=== PATIENT | female | born 1975 | race Caucasian/White ===

== ENCOUNTER 2019-11-19 16:29 | Emergency (ER) | payer OTHER, BC, SELFPAY ==
[2019-11-19 16:31] VITALS: BP 129/79; PULSE 63; RESP 18; TEMP 36.6; O2SAT 100
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
[2019-11-19] MEDS: KETOROLAC (*BKC) 60 MG/2 ML VIAL IM (16:56)
== END 2019-11-19 18:10 | disposition home or self-care (01) ==
LOC: ANHED 17:43
PROVIDERS: Emergency Provider Emergency Medicine; PCP Family Medicine
DX: S29.012A Strain of muscle and tendon of back wall of thorax, initial encounter (principal); V49.40XA Driver injured in collision with unspecified motor vehicles in traffic accident, initial encounter
CPT/HCPCS: 96372; 99283; J1885

== ENCOUNTER 2023-01-08 15:40 | Emergency (ER) | payer BC, SELFPAY ==
--- NOTE | ~2023-01-08 | XR_ITS ---
EXAMINATION: XR chest 2V DATE: 01/08/2023 16:14 INDICATION: Cough since recent COVID infection TECHNIQUE: PA and lateral views of the chest are obtained. COMPARISON: None available FINDINGS: The lungs are free of acute opacities. No pleural effusion or pneumothorax. The cardiomedia stinal silhouette is normal. There is mild thoracic spondylosis. IMPRESSION: 1. No acute cardiopulmonary abnormality. Reviewed, dictated and finalized at location L.
[2023-01-08 15:48] VITALS: BP 123/70; PULSE 79; RESP 20; TEMP 36.4; O2SAT 100
--- NOTE | 2023-01-08 16:21 | ED.URI ---
HPI - URI/Sore Throat General Chief Complaint: Upper Respiratory Infection Stated Complaint: Cough Time Seen by Provider: 01/08/23 16:22 Source: patient Mode of arrival: ambulatory Limitations: no limitations History of Present Illness HPI Narrative: 47-year-old female presented for complaint of persistent cough for about 3 weeks following COVID. States other covid symptoms have resolved. Cough is worse at night, causes sob with coughing fits. Denies Chest pain, wheezing, nausea, vomiting, fevers or chills. Taking magdalena seltzer for symptoms and using albuterol inhaler up to 6 times a day. States she did a telehealth appointment today and was advised on CXR. Unable to see pcp until May. Related Data Allergies Allergy/AdvReac Type Severity Reaction Status Date / Time No Known Allergies Allergy Verified 11/19/19 16:53 Review of Systems Review of Systems: CONSTITUTIONAL: Denies body aches, fever, chills, or sweats. EYES: Denies visual changes, redness, or discharge. ENT: Denies rhinorrhea, congestion, sore throat, or otalgia. CARDIOVASCULAR: Denies chest pain, palpitations, or edema. RESPIRATORY: Reports cough, denies sob, wheezing. GASTROINTESTINAL: Denies abdominal pain, nausea, vomiting, or diarrhea. GENITOURINARY: Denies dysuria or hematuria. SKIN: Denies rash, itching, or wounds. MUSCULOSKELETAL: Denies back pain, joint pain, or myalgia. NEUROLOGIC: Denies headache, numbness, tingling, or weakness. PSYCH: Denies depression or anxiety. All systems reviewed & are unremarkable except as noted in HPI and below PMFSH Past Medical History Medical History Migraine headache Comments At time of signature, I have reviewed and agree with nursing past medical, surgical, social and family history unless otherwise noted. Please see nursing chart for further information. There is no relevant family history pertinent to the presenting complaint Exam Narrative: GENERAL: Well-appearing, in no acute distress. EYES: EOMI. No redness or drainage. Conjunctivae normal. ENT: Mucous membranes pink and moist. No rhinorrhea. TMs normal bilaterally. Throat normal. Uvula midline. NECK: Normal AROM. Supple. CHEST: No respiratory distress. LCTAB. Speaks full sentences. HEART: Regular rate and rhythm. No murmur appreciated. ABDOMEN: Soft, nontender, nondistended, normal active bowel sounds. EXTREMITIES: Normal range of motion. No edema. SKIN: Warm, dry, no rash. Capillary refill normal. Normal skin turgor. NEURO: Alert and oriented x3. Gait steady. PSYCH: Normal affect. Talkative. Course Course Emergency Course: Patient is aware of diagnosis, understands and agrees to treatment plan. Anticipatory guidance given. Patient agrees to follow-up as directed and is aware of reasons to seek care at the emergency department. Portions of this record may have been created with voice recognition software Level of Care: Express Care Visit Vital Signs Vital signs: Vital Signs Temperature 97.6 F 01/08/23 15:48 Pulse Rate 79 01/08/23 15:48 Respiratory Rate 20 01/08/23 15:48 Blood Pressure 123/70 01/08/23 15:48 Pulse Oximetry 100 01/08/23 15:48 Oxygen Delivery Room Air 01/08/23 15:48 Temperature 97.6 F 01/08/23 15:48 Pulse Rate 79 01/08/23 15:48 Respiratory Rate 20 01/08/23 15:48 Blood Pressure 123/70 01/08/23 15:48 Pulse Oximetry 100 01/08/23 15:48 Oxygen Delivery Room Air 01/08/23 15:48 MDM - URI/Sore Throat MDM Narrative Medical decision making narrative: results of chest x-ray reviewed with patient. Discussed physical exam findings. Advised supportive measures and signs/symptoms to go to the ER. Pt is appropriate for outpt treatment and f/u. Differential Diagnosis Differential diagnosis: Likely upper respiratory infection, viral infection and bronchitis Imaging Data Radiologist's impression: Patient: Levine
== END 2023-01-08 16:39 | disposition home or self-care (01) ==
PROVIDERS: Emergency Provider Nurse Practitioner Family
DX: R05.9 Cough, unspecified (principal); Z86.16 Personal history of COVID-19
CPT/HCPCS: 71046; 99203; G0463

== ENCOUNTER 2024-04-28 14:23 | Emergency (ER) | payer BC, SELFPAY ==
[2024-04-28 14:37] VITALS: BP 137/79; PULSE 97; RESP 16; TEMP 36.5; O2SAT 100
--- NOTE | 2024-04-28 14:37 | ED_ITS ---
HPI - URI/Sore Throat General Chief Complaint: Upper Respiratory Infection Stated Complaint: cough/sob/ear/drainage Time Seen by Provider: 04/28/24 14:38 Source: patient Mode of arrival: ambulatory Limitations: no limitations History of Present Illness HPI Narrative: 49-year-old female with a history of asthma presented for complaint of cough for 3 weeks, nasal congestion and left ear pain for 2 weeks. endorses shortness of breath with exertion and fatigue. Denies wheezing, nausea vomiting diarrhea, fevers or chills. Taking [id number] medications without improvement. Related Data Home Medications ?Medication ?Instructions ?Recorded ?Confirmed ?Last Taken ?Type montelukast 10 mg tablet 10 mg PO DAILY 04/28/24 Unknown History (Singulair) Allergies Allergy/AdvReac Type Severity Reaction Status Date / Time No Known Allergies Allergy Verified 11/19/19 16:53 Review of Systems Review of Systems: CONSTITUTIONAL: Denies body aches, fever, chills, or sweats. EYES: Denies visual changes, redness, or discharge. ENT: reports rhinorrhea, congestion, otalgia. CARDIOVASCULAR: Denies chest pain, palpitations, or edema. RESPIRATORY: Reports cough, sob, denies wheezing. GASTROINTESTINAL: Denies abdominal pain, nausea, vomiting, or diarrhea. SKIN: Denies rash, itching, or wounds. MUSCULOSKELETAL: Denies back pain, joint pain, or myalgia. NEUROLOGIC: Denies headache, numbness, tingling, or weakness. All systems reviewed & are unremarkable except as noted in HPI and below [facility] Past Medical History Medical History (Updated 04/28/24 @ 14:50 by Jane Garrido, STEFF) Asthma Migraine headache Comments At time of signature, I have reviewed and agree with nursing past medical, surgical, social and family history unless otherwise noted. Please see nursing chart for further information. There is no relevant family history pertinent to the presenting complaint Exam Narrative: GENERAL: Well-appearing, in no acute distress. EYES: EOMI. No redness or drainage. Conjunctivae normal. ENT: Mucous membranes pink and moist. No rhinorrhea. TMs normal bilaterally. Throat normal. Uvula midline. CHEST: No respiratory distress. lungs clear to all mullins. HEART: Regular rate and rhythm. No murmur appreciated. ABDOMEN: Soft, nontender, nondistended, normal active bowel sounds. SKIN: Warm, dry, no rash. Capillary refill normal. Normal skin turgor. NEURO: Alert and oriented x3. Gait steady. PSYCH: Normal affect. Course Course Emergency Course: Patient is aware of diagnosis, understands and agrees to treatment plan. Anticipatory guidance given. Patient agrees to follow-up as directed and is aware of reasons to seek care at the emergency department. Portions of this record may have been created with voice recognition software Level of Care: Express Care Visit MDM - URI/Sore Throat MDM Narrative Medical decision making narrative: Discussed physical exam findings. Advised supportive measures and signs/symptoms to go to the ER. Pt is appropriate for outpt treatment and f/u. Differential Diagnosis Differential diagnosis: Likely upper respiratory infection, sinusitis, viral infection, bronchitis and other (pneumonia) Discharge Plan Discharge Clinical Impression: Bronchitis Patient Disposition: Home, Self-Care Condition: Stable Instructions: Antibiotic Form, Pneumonia (ED) Additional Instructions: Acute bronchitis can be contagious because it is usually caused by infection with a virus or bacteria. It is usually for a few days but you can be contagious for up to one week. Avoid crowds until you do not have a fever and symptoms are improved Take medication as directed Recommend Flonase spray and Zyrtec (or Claritin/Stephanie) the prescribed Cough syrup may cause drowsiness and can be habit forming; Take it as directed. avoid driving or take it at night time. Tylenol 1000mg every 8 hours as needed for pain Symptomatic treatment includes: rest, fluids, and increase humidity of the air at home. Follow up with your primary care provider as needed in 1 week Go to the ER for worsening symptoms or concerns Patient Language: Filipino Prescriptions: New benzonatate 200 mg capsule 200 mg PO TID PRN (Reason: cough) Qty: 20 0RF codeine-guaifenesin [Guaifenesin AC] 10-100 mg/5 mL liquid 10 ml PO Q8H PRN (Reason: cough) Qty: 120 0RF amoxicillin-pot clavulanate 875-125 mg tablet 1 tablet PO Q12H 7 Days Qty: 14 0RF methylprednisolone [Medrol (Rachid)] 4 mg tablets,dose pack See Rx Instructions .ROUTE .COMPLEX Qty: 21 0RF Rx Instructions: orally per package directions No Action montelukast [Singulair] 10 mg tablet 10 mg PO DAILY Follow-up/Referrals: PHYSICIAN NOT ON STAFF,NONSTAFF [Primary Care Provider] - Time of Disposition: 14:48
== END 2024-04-28 14:50 | disposition home or self-care (01) ==
PROVIDERS: Emergency Provider Nurse Practitioner Family
DX: J40 Bronchitis, not specified as acute or chronic (principal); J45.909 Unspecified asthma, uncomplicated
CPT/HCPCS: 99213; G0463

== ENCOUNTER 2024-07-07 15:57 | Emergency (ER) | payer BC, SELFPAY ==
[2024-07-07 16:05] VITALS: BP 126/81; PULSE 77; RESP 20; TEMP 37.3; O2SAT 100
--- NOTE | 2024-07-07 16:31 | ED.URI ---
HPI - URI/Sore Throat General Chief Complaint: Upper Respiratory Infection Stated Complaint: cough/chest congestion Time Seen by Provider: 07/07/24 16:43 Source: patient Mode of arrival: ambulatory Limitations: no limitations History of Present Illness HPI Narrative: 49-year-old female with a history of asthma presented for complaint of cough, chest congestion, occasional wheezing, and fatigue. Onset 3 days. However she states she has been treated earlier this via [facility], and also treated in April for the same. She had antibiotics, steroids, and cough medicine since onset with brief improvement. She currently denies shortness of breath, nausea, vomiting, diarrhea, fevers or lethargy. using inhaler. Related Data Home Medications ?Medication ?Instructions ?Recorded ?Confirmed ?Last Taken ?Type montelukast 10 mg tablet 10 mg PO DAILY 04/28/24 Unknown History (Singulair) albuterol sulfate 90 mcg/actuation 2 inh inhalation Q4-6H PRN 07/07/24 Unknown History breath activated powder inhaler shortness of breath or wheezing Allergies Allergy/AdvReac Type Severity Reaction Status Date / Time No Known Allergies Allergy Verified 07/07/24 16:24 Review of Systems Review of Systems: ROS per HPI. All systems reviewed & are unremarkable except as noted in HPI and below PMFSH Past Medical History Medical History (Updated 07/07/24 @ 16:57 by Jane Garrido, STEFF) Asthma Migraine headache Comments At time of signature, I have reviewed and agree with nursing past medical, surgical, social and family history unless otherwise noted. Please see nursing chart for further information. There is no relevant family history pertinent to the presenting complaint Exam Narrative: GENERAL: Well-appearing, in no acute distress. EYES: EOMI. No redness or drainage. Conjunctivae normal. ENT: Mucous membranes pink and moist. No rhinorrhea. NECK: Normal AROM. Supple. CHEST: No respiratory distress. Lungs clear to all mullins. HEART: Regular rate and rhythm. No murmur appreciated. ABDOMEN: Soft, nontender, nondistended, normal active bowel sounds. SKIN: Warm, dry, no rash. Capillary refill normal. Normal skin turgor. NEURO: Alert and oriented x3. Gait steady. PSYCH: Normal affect. Course Course Emergency Course: Patient is aware of diagnosis, understands and agrees to treatment plan. Anticipatory guidance given. Patient agrees to follow-up as directed and is aware of reasons to seek care at the emergency department. Portions of this record may have been created with voice recognition software Level of Care: Express Care Visit Vital Signs Vital signs: Vital Signs Temperature 99.2 F 07/07/24 16:05 Pulse Rate 77 07/07/24 16:05 Respiratory Rate 20 07/07/24 16:05 Blood Pressure 126/81 07/07/24 16:05 Pulse Oximetry 100 07/07/24 16:05 Oxygen Delivery Room Air 07/07/24 16:05 Temperature 99.2 F 07/07/24 16:05 Pulse Rate 77 07/07/24 16:05 Respiratory Rate 20 07/07/24 16:05 Blood Pressure 126/81 07/07/24 16:05 Pulse Oximetry 100 07/07/24 16:05 Oxygen Delivery Room Air 07/07/24 16:05 MDM - URI/Sore Throat MDM Narrative Medical decision making narrative: Discussed physical exam findings. offered patient to closely monitor symptoms and take [id number] medicines, however she is concerned she will develop pneumonia and prefers to start antibiotic at this time. Advised supportive measures and signs/symptoms to go to the ER. Pt is appropriate for outpt treatment and f/u. Differential Diagnosis Differential diagnosis: Likely upper respiratory infection, sinusitis, viral infection, bronchitis, influenza and pharyngitis Discharge Plan Discharge Clinical Impression: Acute lower respiratory infection Patient Disposition: Home, Self-Care Condition: Stable Instructions: Antibiotic Form, Pneumonia (ED) Additional Instructions: Recommendations: Flonase spray and Zyrtec (or Claritin/Stephanie) over the counter Cough syrup may cause drowsiness; avoid driving or take it at night time. Tylenol 1000mg every 8 hours as needed for pain Symptomatic treatment includes: rest, fluids, and increase humidity of the air at home. Follow up with your primary care provider in 1 week. Go to the ER for worsening symptoms or concerns. Patient Language: Divehi Prescriptions: New benzonatate 200 mg capsule 200 mg PO TID PRN (Reason: cough) Qty: 20 0RF albuterol sulfate 90 mcg/actuation HFA aerosol inhaler 2 inh inhalation QID PRN (Reason: shortness of breath or wheezing) Qty: 8.5 0RF amoxicillin-pot clavulanate 875-125 mg tablet 1 tablet PO Q12H 7 Days Qty: 14 0RF No Action montelukast [Singulair] 10 mg tablet 10 mg PO DAILY albuterol sulfate 90 mcg/actuation aerosol powdr breath activated 2 inh inhalation Q4-6H PRN (Reason: shortness of breath or wheezing) Follow-up/Referrals: PHYSICIAN NOT ON STAFF,NONSTAFF [Primary Care Provider] - Time of Disposition: 16:58
== END 2024-07-07 17:00 | disposition home or self-care (01) ==
PROVIDERS: Emergency Provider Nurse Practitioner Family
DX: J22 Unspecified acute lower respiratory infection (principal)
CPT/HCPCS: 99213; G0463

== ENCOUNTER 2025-01-25 15:44 | Emergency (ER) | payer BC, SELFPAY ==
--- OUTSIDE RECORDS SUMMARY | 2017-03-15 19:00 | XMS_ITS | Continuity of Care Document ---
Author Organization [facility] Address [address] [place] [address] Phone Care Team Providers Care Agricultural Mechanic Name Role Phone Administrative, Provider Unavailable Unavail able Procedures Procedure Date Xray Copy Medical Record Copy Medical Record Copy Per Page Affidavit Office/outpatient visit,est, mod 2006 Supplemental Report Office/outpatient visit,est, mod 2006 Supplemental Report Office/outpatient visit,est, high Supplemental Report Office/outpatient visit,est, high Supplemental Report Office/outpatient visit,est, high X-ray exam of knee, 3 views Supplemental Report Office consultation, high X-ray exam of knee, 1 or2 views 007 X-ray exam of both knees, standing -2006 Advance Directives Directive Yes / No Effective Date File Name No Information Encounters Encounter Description Practice Location Reason(s) For Visit Diagnoses Date Provider Providers Copied on Encounter [facility], [address] [place], [place] [address]uite [facility], [place], [place], [id number], tel:[phone] [facility] No Information Administrative Provider. [address] [place] [address], [facility] [address], [place], [place], [id number], [place]. tel:[phone] [facility], [address], [id number], [place] tel:[phone] [facility] No Information 7 Administrative Provider. [address] [place] [address], [address], [place], [place], [id number], [place]. tel:[phone] Office/outpa tient visit,[facility], [address] [place] [address], [place], [place], [id number], [place] tel:[phone] [facility] No Information 7 No Information Office/outpa tient visit,[facility], [address], [id number], [place] tel:[phone] [facility] No Information 7 No Information Office/outpa tient visit,[facility], [facility], [facility] [address], [id number], [place] tel:[phone] [facility] No Information 7 No Information Office/outpa tient visit,[facility], [address] [place] [address], [id number], [place] tel:[phone] [facility] No Information 7 No Information Office/outpa tient visit,[facility], [address] [place] [address], [id number], [place] tel:[phone] [facility] No Information 7 No Information Office consultation , [facility] [facility], [facility] [address], [id number], [place] tel:[phone] [facility] No Information 7 No Information Family History Family Member Type Diagnosis Age At Onset No Information Payers Payer name Insurance type Covered green party ID Authoriza tion(s) No Information Social History Type Description Quantity Date Captured Comments Sex Female Smoking Status No Information Chief Complaint And Reason For Visit No Information Reason For Referral Reason For Referral No Information History Of Present Illness Encounter Date Complaint History Of Prese nt Illness No Information Functional Status Date Functional Assessmen t No Information Instructions Date Instruction Additional Infor mation No Information Assessments Type Assessment Date No Information Patient Care Teams Name Effective Dates (start - stop) Status Members No Information
--- OUTSIDE RECORDS SUMMARY | 2017-03-15 19:00 | XMS_ITS | Continuity of Care Document ---
Author Organization [facility] Address [address] [place] [address] Phone Care Team Providers Care Genetics Teacher Name Role Phone Administrative, Provider Unavailable Unavail [...] Date Provider Providers Copied on Encounter [facility], [address] [place], [place] [address]uite [facility], [place], [place], [id number], tel:[phone] [facility] No Information Administrative Provider. [address] [place] [address], [facility] [address], [place], [place], [id number], [place]. tel:[phone] [facility], [address], [id number], [place] tel:[phone] [facility] No Information 7 Administrative Provider. [address] [place] [address], [address], [place], [place], [id number], [place]. tel:[phone] Office/outpa tient visit,[facility], [address] [place] [address], [place], [place], [id number], [place] tel:[phone] [facility] No Information 7 No Information Office/outpa tient visit,[facility], [address], [id number], [place] tel:[phone] [facility] No Information 7 No Information Office/outpa tient visit,[facility], [facility], [facility] [address], [id number], [place] tel:[phone] [facility] No Information 7 No Information Office/outpa tient visit,[facility], [address] [place] [address], [id number], [place] tel:[phone] [facility] No Information 7 No Information Office/outpa tient visit,[facility], [address] [place] [address], [id number], [place] tel:[phone] [facility] No Information 7 No Information Office consultation , [facility], [facility] [address], [id number], [place] tel:[phone] [facility] No Information 7 No Information Family History Family Member Type Diagnosis Age At Onset No Information Payers Payer name Insurance type Covered democrat ID Authoriza tion(s) No Information Social History [...]
--- OUTSIDE RECORDS SUMMARY | 2018-12-28 05:10 | XMS_ITS | Continuity of Care Document ---
Author Organization [facility] Address [address] [place] [address] Phone Care Team Providers Care Auto Service Dispatcher Name Role Phone Manan Mendoza DPM Unavailable Unavailable Allergies, Adverse Reactions, Alerts Substance Reaction Status Criticality No Known Allergies Active No Inform ation Procedures Procedure Date RADEX FOOT COMPL MINIMUM 3 VIEWS 2018 RADEX ANKLE COMPL MINIMUM 3 VIEWS POSTOP FOLLOW-UP VISIT Advance Directives Directive Yes / No Effective Date File Name No Information Encounters Encounter Description Practice Location Reason(s) For Visit Diagnoses Date Provider Providers Copied on Encounter [facility], [address], [place], [address], [place] tel:[phone] [facility] Body mass index (BMI) 30.0-30.9, adultPain in left footPain in left ankleMononeuropat hy of left lower extremityMyopathy 0-201 9 Reji Hinkle. [address] [facility] [address], [place], [place], [id number] . tel:[phone] Family History Family Member Type Diagnosis Age At Onset No Information Payers Payer name Insurance type Covered alliance party ID Authoriza tion(s) No Information Social History Type Description Quantity Date Captured Comments Alcohol Use Details Unknown Caffeine Use Details Unknown Tobacco Use Status Current non-smoker Smoking Status Never smoker Non-Smoking Tobacco Use Details : No Details Available : No Details Available Sex Female Vital Signs Date / Time: Height Weight BMI Pulse Rate Blood Pressure Temperature Respiratory Rate Body Surface Area Head Circumference Head Circ. Percentile Wt./[place]hawn. Percentile BMI percentile Pulse Ox Inhaled Ox 10:17 AM 67.00 in 88.904 kg (196.00 lbs) 30.7 0 kg/m eter (2) Chief Complaint And Reason For Visit No Information Reason For Referral Reason For Referral No Information Plan Of Treatment Date Type Action Status Referral Ordered: RADEX ANKLE COMPL MINIMUM 3 VIEWS LT ordered Referral Ordered: RADEX FOOT COMPL MINIMUM 3 VIEWS LT ordered History Of Present Illness Encounter Date Complaint History Of Prese nt Illness No Information Functional Status Date Functional Assessmen t No Information Instructions Date Instruction Additional Infor mation Giving encouragement to exercise Related to Body mass index (BMI) 30.0-30.9, adult Discussed treatment options Rela claire to Pain in left ankle Assessments Type Assessment Date assessment Body mass index (BMI) 30.0-30.9, adult assessment Pain in left foot assessment Pain in left ankle assessment Mononeuropathy of left lower ext remity assessment Myopathy Patient Care Teams Name Effective Dates (start - stop) Status Members No Information
--- OUTSIDE RECORDS SUMMARY | 2018-12-28 05:10 | XMS_ITS | Continuity of Care Document ---
Author Organization [facility] Address [address] [place] [address] Phone Care Team Providers Care Product Promoter Sales Person Name Role Phone Manan Mendoza DPM Unavailable [...] Providers Copied on Encounter [facility], [address], [place], [address], [place] tel:[phone] [facility] Body mass index (BMI) 30.0-30.9, adultPain in left footPain in left ankleMononeuropat hy of left lower extremityMyopathy 0-201 9 Reji Hinkle. [address] [facility] [address], [place], [place], [id number] . tel:[phone] Family History Family Member Type Diagnosis Age [...]
[2025-01-25 15:52] VITALS: BP 123/74; PULSE 70; RESP 18; TEMP 36.2; O2SAT 100
--- OUTSIDE RECORDS SUMMARY | 2025-01-25 16:24 | XMS_ITS | Clinical Summary ---
Author Organization [facility] [place] Address [address] [place] [address] Phone Care Team Providers Care Belt Back Operator Name Role Phone Trav Khalil MD Primary Care Provider [phone] Allergies No known active allergies Medications No known medications Active Problems Patient Care Coordination No te Formatting of this note migh t be different from the original. Primary Care: Nino Segura DO Referring Provider: Trav Love MD [facility] [facility] [address] [place] [address] Other: Problem Noted Date Diagnosed Date Lump or mass in breast 10/19/2012 Asthma Eczema Anemia Family History Medical History Relation Name Comments Healthy Father Healthy Mother Cancer Paternal Grandmother melanom a Lung Cancer Paternal Grandmother Relation Name Status Comments Father Alive Mother Alive Paternal Grandmother Social History Tobacco Use Types Packs/Day Years Used Date Smoking Tobacco: Never Smokeless Tobacco: Never Tobacco Cessation:Counseling Given: No Alcohol Use Standard Drinks/Week Comments Yes 0 (1 standard drink = 0.6 oz pur e alcohol) rarely Comments No Sex and Gender Information Value Date Recorded Sex Assigned at Not on file Legal Sex Female 3:48 PM CDT Gender Identity Not on file Sexual Orientation Not on file Occupation Industry Job Start Date Job End Date Not on file Not on file Not on file Not on file Last Filed Vital Signs Vital Sign Reading Time Taken Comments Blood Pressure 119/59 11/28/2019 9:13 PM CDT Pulse 66 11/28/2019 9:13 PM CDT Temperature 36.9 C (98.4 F) 11/28/2019 9:13 PM CDT Respiratory Rate 16 11/28/2019 9:13 PM CDT Oxygen Saturation 99% 11/28/2019 9:13 PM CDT Inhaled Oxygen Concentration - - Weight 79.4 kg (175 lb) 11/28/2019 6:29 PM CDT Height 167.6 cm (5' 6) 11/28/2019 6:29 PM CDT Body Mass Index 28.25 11/28/2019 6:29 PM CDT Plan of Treatment Health Maintenance Due Date Last Done Comments HEPATITIS B VACCINES (1 of 3 - 19+ 3-dose series) 03/12 HPV/Cotest (21-29) 1997 CERVICAL CANCER SCREENING 2006 HPV/Cotest (30-65) 2006 PAP SMEAR 2006 BREAST CANCER SCREENING 2016 11/04/2012 COLORECTAL SCREENING 2021 Colorectal Cancer Screening 2021 FIT-DNA Q 3 years 2021 FIT/FOBT Q 1 year 2021 Flex Sig/CT Colonography Q 5 years 2021 INFLUENZA VACCINE (#1) 2024 DTAP/TDAP/TD VACCINES (2 - Td or Tdap) 07/28/2027 Procedures Procedure Name Priority Date/Time Associated Diagnosis Comments MAMMO DIAGNOSTIC BILATERAL W OR WO CAD Routine 11/04/2012 10:30 AM CDT Lump or mass in breast from Last 3 Months or Most Recently Relevant to Health Maintenance Results * MAMMO DIGITAL DIAG BILAT (11/04/2012 10:30 AM CDT) Anatomical Region Laterality Modality Breast Bilateral Mammography 11/04/2012 10:2 1 AM CDT Narrative 11/08/2012 8:40 AM CDT BILATERAL FULL FIELD DIGITAL DIAGNOSTIC MAMMOGRAM WITH CAD LEFT BREAST ULTRASOUND 11/04/12 HISTORY: The patient describes an area of palpable concern in the upper outer left breast. COMPARISON: None BREAST COMPOSITION: Heterogeneously dense, which lowers the sensitivity of mammography. FINDINGS: Benign-appearing dense tissues are observed in the upper outer left breast at the site of the patient's palpable lump. No underlying mass or distortion is appreciated. No persistent mass or suspicious microcalcifications are seen in either breast. CAD was utilized. High-resolution ultrasound was performed through the upper outer left breast. Benign-appearing echogenic tissues are observed at the site of the patient's palpable lump in the upper outer left breast. No discrete solid or cystic lesion is present. No architectural distortion or acoustic shadowing is identified. OVERALL ASSESSMENT: BI-RADS category 1 - Negative RECOMMENDATION: Clinical management of the patient's palpable lump is recommended. Annual mammography is recommended beginning at the age of 40. Dictated from [facility] Procedure Note Juan Dunbar MD - 11/08/2012 BILATERAL FULL FIELD DIGITAL DIAGNOSTIC MAMMOGRAM WITH CAD LEFT BREAST ULTRASOUND 11/04/12 HISTORY: The patient describes an area of palpable concern in the upper outer left breast. COMPARISON: None BREAST COMPOSITION: Heterogeneously dense, which lowers the sensitivity of mammography. FINDINGS: Benign-appearing dense tissues are observed in the upper outer left breast at the site of the patient's palpable lump. No underlying mass or distortion is appreciated. No persistent mass or suspicious microcalcifications are seen in either breast. CAD was utilized. High-resolution ultrasound was performed through the upper outer left breast. Benign-appearing echogenic tissues are observed at the site of the patient's palpable lump in the upper outer left breast. No discrete solid or cystic lesion is present. No architectural distortion or acoustic shadowing is identified. OVERALL ASSESSMENT: BI-RADS category 1 - Negative RECOMMENDATION: Clinical management of the patient's palpable lump is recommended. Annual mammography is recommended beginning at the age of 40. Dictated from [facility]ie [facility]za Isabella Willard MD MAMMO ORDERABLES Final Result from Last 3 Months or Most Recently Relevant to Health Maintenance Insurance [facility] BLUE ACCESS CHOICE [id number] [place] [id number] Care Teams Belt Back Operator Relationship Specialty Start Date End Date Trav Khalil MD PCP - General Family Practice 11/28/19
--- OUTSIDE RECORDS SUMMARY | 2025-01-25 16:24 | XMS_ITS | Clinical Summary ---
Author Organization [facility] [employer] Address [address] [place] [address] Care Team Providers Care Sweeper Brush Maker Machine Name Role Phone Nino Segura MD Primary Care Provider Source Comments [facility] [employer],non-owned Affiliates and Associated Physician Practices is amultiple site organization consisting of ambulatory clinics and hospital sitesin [place], [place], [place] and [place]. This disclosure is being madepursuant to the Care Everywhere program and may not contain all information available regarding this patient. Last updated 18.[employer] Medications * Be aware that medications may not be up to date on this document. Alwaysverify current medications with the patient. traMADol (ULTRAM) 50 MG tablet Take 50 mg by mouth q6h PRN (Pain). 30 tablet 0 12/09/2015 Active ibuprofen (MOTRIN) 800 MG tablet Take 800 mg by mouth q6h PRN (Pain). 30 tablet 0 12/09/2015 Active Social History Tobacco Use Types Packs/Day Years Used Date Smoking Tobacco: Never Alcohol Use Standard Drinks/Week Comments Yes 0 (1 standard drink = 0.6 oz pur e alcohol) Comments Unknown Sex and Gender Information Value Date Recorded Sex Assigned at Not on file Legal Sex Female 5:54 PM CLIN NURSE SPEC Gender Identity Not on file Sexual Orientation Not on file Last Filed Vital Signs Vital Sign Reading Time Taken Comments Blood Pressure 119/81 12/09/2015 2:54 AM CDT Pulse 67 12/09/2015 2:54 AM CDT Temperature 36.7 C (98 F) 12/09/2015 2:54 AM CDT Respiratory Rate 18 12/09/2015 2:54 AM CDT Oxygen Saturation 96% 12/09/2015 2:54 AM CDT Inhaled Oxygen Concentration - - Weight 81.6 kg (180 lb) 12/09/2015 2:54 AM CDT Height 170.2 cm (5' 7) 12/09/2015 2:54 AM CDT Body Mass Index 28.19 12/09/2015 2:54 AM CDT Plan of Treatment Health Maintenance Due Date Last Done Comments COLOGUARD (AGES 45-75) - COL ON CA SCREENING 1976 COLON MONITORING 1976 COLONOSCOPY - COLON CA SCREENING 1976 CT COLONOGRAPHY - COLON CA SCREENING 1976 Colorectal Cancer Screening 1976 FIT - COLON CA SCREENING 1976 FLEX SIG - COLON CA SCREENING 1976 LIPID TESTING 1976 MAMMOGRAM 1976 HIV SCREENING 1991 HEPATITIS C SCREENING 03/30/1994 DTAP/TDAP/TD VACCINES (1 - Tdap) 1995 HEPATITIS B VACCINE (1 of 3 - 19+ 3-dose series) 1995 DEPRESSION SCREENING 05/11/2024 COVID-19 VACCINE (1 - 2023-2 5 season) 2025 INFLUENZA VACCINE (#1) 2025 ZOSTER VACCINE (1 of 2) 2026 HIB VACCINE Aged Out No longer eligi ble based on patient's age to complete this topic HPV VACCINE Aged Out No longer eligi ble based on patient's age to complete this topic MENINGOCOCCAL (Group B) VACC INE SHARED DECISION-MAKING Aged Out No longer eligibl e based on patient's age to complete this topic MENINGOCOCCAL GROUPS A/C/Y/W VACCINE Aged Out No longer eligible b ased on patient's age to complete this topic PNEUMOCOCCAL VACCINE Aged Out No long er eligible based on patient's age to complete this topic Insurance [employer] Care Teams Sweeper Brush Maker Machine Relationship Specialty Start Date End Date Nino Segura MD [address] [place] [address] PCP - General 12/25/10
--- OUTSIDE RECORDS SUMMARY | 2025-01-25 16:24 | XMS_ITS | Clinical Summary ---
Author Organization [facility] [address] [facility] lto Address [address] [place] [address] Care Team Providers Care Fire Engine Operator Name Role Phone [facility] Pro vider Allergies No known active allergies Medications montelukast (SINGULAIR) 10 mg tabletIndication s:Maintenance Therapy for Asthma Take 1 tablet (10 mg total) by mouth daily 90 tablet 3 10/25/19 20 Active dicyclomine (BENTYL) 10 mg capsule Take 1 capsule (10 mg total) by mouth 3 (three) times a day as needed (abdominal pain) 30 capsule 12/12/19 20 Active cyclobenzaprine (FLEXERIL) 10 mg tablet Take 1 tablet (10 mg total) by mouth 3 (three) times a day as needed for muscle spasms 30 tablet 01/02/20 20 Active amitriptyline (ELAVIL) 50 mg tabletIndication s:Migraine Prevention Take 1 tablet (50 mg total) by mouth nightly 90 tablet 1 02/24/20 20 Active ID NOW COVID-19 Test Kit kit as directed 10/16/19 21 Active albuterol HFA (PROVENTIL HFA,VENTOLIN HFA,PROAIR HFA) 90 mcg/actuation inhalerIndicatio ns:Mild intermittent asthma without complication Inhale 2 puffs every 4 (four) hours as needed for wheezing or shortness of breath 16 each 2 05/14/19 22 Active metoclopramide (REGLAN) 10 mg tabletIndication s:migraine and nausea Take 1 tablet (10 mg total) by mouth every 6 (six) hours 30 tablet 01/19/20 23 Active metoprolol tartrate (LOPRESSOR) 50 mg immediate release tabletIndication s:Chronic migraine without aura with status migrainosus, not intractable Take 1 tablet (50 mg total) by mouth 2 (two) times a day 60 tablet 01/19/20 23 Active ibuprofen (ADVIL,MOTRIN) 600 mg tabletIndication s:Pain,migraine Take 1 tablet (600 mg total) by mouth 3 (three) times a day Take with food. 30 tablet 01/19/20 23 Active SUMAtriptan (Imitrex) 100 mg tabletIndication s:Migraine Take 1 tablet (100 mg total) by mouth once as needed for migraine for up to 9 doses 9 tablet 01/11/20 25 Active SUMAtriptan (Imitrex) 100 mg tabletIndication s:Migraine Take 1 tablet (100 mg total) by mouth once as needed for migraine for up to 9 doses 9 tablet 01/19/20 23 025 Discontinued Active Problems Problem Noted Date Diagnosed Date Eczema 10/01/2020 Mild intermittent asthma without complication Migraine without aura and wi thout status migrainosus, not intractable 01/24/2020 RLQ abdominal pain 12/12/2019 Assessment & Plan (12/12/2019 2:54 PM CDT): Intermittent RLQ pain ongoing for about 7 years. Sometimes has some warning prior to it occurring and feels an ache in this area. The pain is sharp. It can last anywhere from 15 minutes to a few hours. She says she usually goes to lie down when she has the pain which helps somewhat. Has not tried any medication for the pain. When the pain is occurring, she avoids eating because it can make it worse. She often has bloating with the pain. Doesn't appear to be correlated to BM's per patient. She used to have 2-3 BM's daily but in the last several years, only having BM every 2 days. She did try clean eating for some time and this improved BM's and stopped the RLQ pain from occurring. She says she had a BM last night. No pain at appointment today. She has had appendix checked in the past without findings. Exam was overall unremarkable. Will target improving BM's to see if this will help with pain. Use Miralax 1-2 doses daily. Will give dicyclomine to use only when pain occurs. If these pain episodes do not improve with improved BM or with dicyclomine, will setup colonoscopy at next appointment. Liver lesion 12/12/2019 Assessment & Plan (12/12/2019 2:55 PM CDT): Pt says she had a CT about 2 years ago and was told she had a liver lesion. She said she never followed up on this. She isn't sure where she had this done. I wasn't able to find this imaging in her chart. Will order abdominal US due to liver lesion, to rule out gallbladder disease and evaluate overall abdomen. Change in bowel habits 12/12/2019 Assessment & Plan (12/12/2019 3:19 PM CDT): Used to have 2-3 BM's daily. In the last several years, she started to skip days. Is now having BM every 2 days and can be anywhere from 2-4 on [place] stool scale. Has not tried anything OTC for her BM's. Will have her use 1-2 doses Miralax on a daily basis. BMI 34.0-34.9,adult 12/12/2019 Assessment & Plan (03/15/2020 10:56 AM NAPPER FIXER): Encoruage healthy food choices and increase aerobic activity as toelrated. Class 1 obesity due to exces s calories without serious comorbidity with body mass index (BMI) of 32.0 to 32.9 in adult 12/12/2019 Anemia 05/26/2018 Asthma 05/26/2018 Lump or mass in breast 10/19/2012 Encounters Date Type Department Care Team Description 01/10/2025 6:07 PM CDT - 01/10/2025 8:17 PM CDT Emergency [facility] [address] [place] [address] Ean Saul MD Other migraine without status migrainosus, not intractable (Primary Dx) Discharge Disposition: Discharge to home or self care from Last 3 Months Immunizations Immunization Administration Dates Next Due Influenza, Quadrivalent, Spl it, Preservative Free, Intramuscular 03/15/2020 Influenza, Unspecified 05/11/2019(Deferr ed: Patient Refused),03/04/2019,05/11/2018(Deferre d: Patient Refused),02/08/2018(Deferred: Patient Refused) Tdap 07/27/2017 Surgical History Surgery Date Site/Laterality Comments OTHER SURGICAL HISTORY Meniscus tear: Right knee surgery Medical History Medical History Date Comments Torn cartilage Meniscus tear; C omments: SAB 12/11/2014 - Asthma Migraines Family History Medical History Relation Name Comments Diabetes Father Hypertension Father Diabetes Mother Hypertension Mother Relation Name Status Comments Father Alive Mother Alive Social History Tobacco Use Types Packs/Day Years Used Date Smoking Tobacco: Never Smokeless Tobacco: Never Alcohol Use Standard Drinks/Week Comments Not Currently 0 (1 standard drink = 0.6 oz pur e alcohol) PHQ-2 Answer Date Recorded PHQ-2 Total Score (If total score is 3 or more points, staff should administer the PHQ-9) 2 03/15/2020 Personal Safety Answer Date Recorded Have you ever been in or are you currently in a harmful physical or emotional relationship or is someone making you feel afraid or unsafe? Denies 01/10/2025 Comments No Sex and Gender Information Value Date Recorded Sex Assigned at Not on file Legal Sex Female 11:29 PM NAPPER FIXER Gender Identity Not on file Sexual Orientation Not on file Obstetrics History Last Filed Vital Signs Vital Sign Reading Time Taken Comments Blood Pressure 119/77 01/10/2025 8:16 PM CDT Pulse 74 01/10/2025 8:16 PM CDT Temperature 36.1 C (96.9 F) 01/10/2025 3:45 PM CDT Respiratory Rate 16 01/10/2025 8:16 PM CDT Oxygen Saturation 98% 01/10/2025 8:16 PM CDT Inhaled Oxygen Concentration - - Weight 90.7 kg (200 lb) 01/10/2025 3:45 PM CDT Height 170.2 cm (5' 7) 01/10/2025 3:45 PM CDT Body Mass Index 31.32 01/10/2025 3:45 PM CDT Plan of Treatment Health Maintenance Due Date Last Done Comments Breast Cancer Screening-Mammogram 1976 Cervical Cancer Screening 1976 Colon Cancer Screening-Colonoscopy 1976 Hepatitis C Screening 1976 Hepatitis B Screening 1994 Regular Well Visit/Exam 18-64 1994 Pneumococcal vaccine <65 (1 of 2 - PCV) 1995 Depression Screening 03/15/2021 03/15/2020, 01/09/2020, 01/02/2020, Additional history exists Influenza Vaccine (#1) 2025 03/15/2020, 2018 DTaP/Tdap/Td Vaccine (2 - Td or Tdap) 07/28/2027 07/27/2017 Procedures Procedure Name Priority Date/Time Associated Diagnosis Comments EGFR STAT 01/10/2025 6:15 PM CDT DIFFERENTIAL AUTO STAT 01/10/2025 6:1 5 PM CDT ERYTHROCYTE SEDIMENTATION RATE STAT 01/10/2025 6:15 PM CDT COMPREHENSIVE METABOLIC PANEL STAT 01/10/2025 6:15 PM CDT CBC WITH AUTO DIFFERENTIAL STAT 01/10/2025 6:15 PM CDT from Last 3 Months Results * eGFR (01/10/2025 6:15 PM CDT) eGFR >90 >=60 mL/min/1. 73 m2 Comment: Interpretive Data Reference Interval Normal >/= 90 mL/min/1.73m2 Mildly decreased* 60 - 89 mL/min/1.73m2 Mildly to moderately decreased 45 - 59 mL/min/1.73m2 Moderately to severely decreased 30 - 44 mL/min/1.73m2 Severely decreased 15 - 29 mL/min/1.73m2 Kidney Failure < 15 mL/min/1.73m2 *Relative to young adult level Estimated glomerular filtration rate is determined by the 2020 CKD-EPI equation recommended by the National Kidney Foundation (A Unifying Approach to GFR Estimation: Recommendations of the NKF-ASK Task Force on Reassessing the Inclusion of Race in Diagnosing Kidney Disease, JASN 2020). The CKD-EPI equation should not be used for patients with unstable renal function and has not been validated in children and those over 70. Current interpretive data was last reviewed 2021. Blood 01/10/2025 6:15 PM CDT 01/10/2025 6:24 PM CDT Ean Saul MD LAB BLOOD ORDERABLES Final R esult [facility] ([place]) 1 [facility] [place] [address] * (ABNORMAL) Differential, auto (01/10/2025 6:15 PM CDT) Neutrophil abs 6.87(H) 1.50 - 6.50 K/cumm Imm gran abs 0.02 0.00 - 0.10 K/cumm [facility] ([place] Lymphocyte abs 0.44(L) 0.80 - 3.30 K/cumm [facility] ([place]) Monocyte abs 0.11(L) 0.20 - 0.80 K/cumm [facility] ([place]) Eosinophil abs 0.01 0.00 - 0.50 K/cumm [facility] ([place]) Basophil abs 0.02 0.00 - 0.10 K/cumm [facility] ([place]) Neutrophil pct 91.9 % [facility] ([place] Comment: Interpretive Data Percent cell count reference ranges are not reported, since discordance with absolute values may lead to misinterpretation of CBC data. Current Interpretive Data was last revised on 2017. Imm gran pct 0.3 % [facility] ([place]) Comment: Interpretive Data Percent cell count reference ranges are not reported, since discordance with absolute values may lead to misinterpretation of CBC data. Current Interpretive Data was last revised on 2017. Lymphocyte pct 5.9 % [facility] ([place]) Comment: Interpretive Data Percent cell count reference ranges are not reported, since discordance with absolute values may lead to misinterpretation of CBC data. Current Interpretive Data was last revised on 2017. Monocyte pct 1.5 % [facility] ([place]) Comment: Interpretive Data Percent cell count reference ranges are not reported, since discordance with absolute values may lead to misinterpretation of CBC data. Current Interpretive Data was last revised on 2017. Eosinophil pct 0.1 % [facility] ([place]) Comment: Interpretive Data Percent cell count reference ranges are not reported, since discordance with absolute values may lead to misinterpretation of CBC data. Current Interpretive Data was last revised on 2017. Basophil pct 0.3 % [facility] ([place]) Comment: Interpretive Data Percent cell count reference ranges are not reported, since discordance with absolute values may lead to misinterpretation of CBC data. Current Interpretive Data was last revised on 2017. Blood 01/10/2025 6:15 PM CDT 01/10/2025 6:24 PM CDT us Ean Saul MD LAB BLOOD ORDERABLES Final R esult [facility] ([place] [place] [address] * (ABNORMAL) CBC with auto differential (01/10/2025 6:15 PM CDT) WBC 7.47 3.80 - 9.90 K/cumm Hgb 10.2(L) 11.9 - 15.5 g/dL [facility] ([place]) Hct 33.1(L) 35.6 - 45.5 % [facility] ([place]) Plt 299 150 - 400 K/cumm [facility] ([place]) MPV 10.1 9.1 - 12.3 fL [facility] ([place]) RBC 4.16 3.90 - 5.20 M/cumm [facility] ([place] MCV 79.6(L) 81.3 - 96.4 fL [facility] ([place] MCH 24.5(L) 27.1 - 33.3 pg [facility] ([place]) MCHC 30.8(L) 32.3 - 35.7 g/dL [facility] ([place]) RDW CV 17.0(H) 11.1 - 14.9 % [facility] ([place]) RDW SD 49.5(H) 35.7 - 48.1 fL [facility] ([place]) NRBC abs 0.00 0.00 - 0.01 K/cumm [facility]) Blood 01/10/2025 6:15 PM CDT 01/10/2025 6:24 PM CDT Ean Saul MD LAB BLOOD ORDERABLES Final R esult Performing Organization Address City/[facility]/ZIP Co de Phone Number [facility] ([place]) [facility] [place] [address] * Erythrocyte sedimentation rate (01/10/2025 6:15 PM CDT) Pathologist [facility] [place] Erythrocyte sedimentation rate 11 1 - 20 mm/hr Blood 01/10/2025 6:15 PM CDT 01/10/2025 6:24 PM CDT Ean Saul MD LAB BLOOD ORDERABLES Final R esult Performing Organization Address City/[facility] de Phone Number [facility] ([place] 1 [facility] [place] [address] * (ABNORMAL) Comprehensive metabolic panel (01/10/2025 6:15 PM CDT) Pathologist [facility] Sodium 139 135 - 145 mmol/L [facility] ([place]) Potassium, pl 3.7 3.3 - 4.9 mmol/L [facility] ([place] Chloride 105 97 - 110 mmol/L [facility] ([place] CO2 21(L) 22 - 32 mmol/L [facility] ([place] Anion gap 13 2 - 15 mmol/L [facility] ([place]) BUN 14 6 - 25 mg/dL [facility] ([place] Creatinine 0.59(L) 0.60 - 1.10 mg/dL [facility] ([place]) Glucose 121 70 - 199 mg/dL [facility] ([place] Comment: Interpretive Data Fasting glucose >/= 126 mg/dl is diagnostic for diabetes. Fasting is defined as no caloric intake for at least 8 hours. Fasting glucose between 100 mg/dl to 125 mg/dl is diagnostic of prediabetes. In a patient with classic symptoms of hyperglycemia or hyperglycemic crisis, a random glucose >/= 200 mg/dl is diagnostic for diabetes. In the absence of unequivocal hyperglycemia, results should be confirmed by repeat testing. The classification and Diagnosis of Diabetes Diabetes Care 202; 46: S19-S40. Current interpretive data was last revised 2022. Calcium 9.2 8.5 - 10.3 mg/dL [facility] ([place]) Bilirubin, total 0.4 0.1 - 1.2 mg/dL [facility] ([place]) Protein, pl 7.3 6.5 - 8.5 g/dL [facility]) Albumin 4.4 3.5 - 5.0 g/dL [facility]) Alk phos 36(L) 40 - 130 Units/L [facility]) ALT 14 7 - 45 Units/L [facility] AST 16 10 - 45 Units/L [facility]) Blood 01/10/2025 6:15 PM CDT 01/10/2025 6:24 PM CDT Ean Saul MD LAB BLOOD ORDERABLES Final R esult [facility] ([place] 1 [facility] [place] [address] from Last 3 Months Insurance [employer] CHOICE Care Teams Fire Engine Operator Relationship Specialty Start Date End Date [facility], Jamey Alonzo [address] [place] [address] PCP - General Genetics 01/10/25
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
--- NOTE | 2025-01-25 16:33 | ED.SKABFB ---
HPI - Skin/Abscess/Foreign Bdy General Chief complaint: Skin/Abscess/Foreign Body Stated complaint: rash all over Time Seen by Provider: 01/25/25 16:24 Source: patient and RN notes reviewed Mode of arrival: ambulatory Limitations: no limitations History of Present Illness HPI narrative: Patient presents today with an 11 day history of pruritic rash to the bilateral arms, right calf, and right neck. Patient is unsure of etiology. She denies any new foods, plants, medications, household products. She has visited her work nurse a few times and was started on a regimen of Benadryl, Claritin, Pepcid, hydrocortisone without much improvement. Related Data Home Medications ?Medication ?Instructions ?Recorded ?Confirmed ?Last Taken ?Type montelukast 10 mg tablet 10 mg PO DAILY 04/28/24 Unknown History (Singulair) albuterol sulfate 90 mcg/actuation 2 inh inhalation Q4-6H PRN 07/07/24 Unknown History breath activated powder inhaler shortness of breath or wheezing sumatriptan succinate 100 mg tablet mg PO 01/25/25 Unknown History Allergies Allergy/AdvReac Type Severity Reaction Status Date / Time No Known Allergies Allergy Verified 01/25/25 16:07 [facility] Past Medical History Medical History Asthma Migraine headache Comments At time of signature, I have reviewed and agree with nursing past medical, surgical, social and family history unless otherwise noted. Please see nursing chart for further information. There is no relevant family history pertinent to the presenting complaint Exam Narrative: GENERAL: Well-appearing, well-nourished, and in no acute distress. HEAD: Normocephalic, atraumatic. EYES: EOMI. No redness or drainage. Conjunctivae normal. ENT: Mucous membranes pink and moist. Nares clear. No rhinorrhea. NECK: Normal AROM. CHEST: No respiratory distress. EXTREMITIES: Normal range of motion. No edema. SKIN: Warm, dry. Capillary refill normal. Normal skin turgor. Faintly pink maculopapular rash to the bilateral inner forearms, posterior right calf area, and right lower neck area. No vesicles, crusting, drainage NEURO: No focal deficits. Alert and oriented x3. Gait steady. PSYCH: Normal affect. No signs of depression or anxiety. Course Course Level of Care: Express Care Visit Vital Signs Vital signs: Vital Signs Temperature 97.2 F L 01/25/25 15:52 Pulse Rate 70 01/25/25 15:52 Respiratory Rate 18 01/25/25 15:52 Blood Pressure 123/74 01/25/25 15:52 Pulse Oximetry 100 01/25/25 15:52 Oxygen Delivery Room Air 01/25/25 15:52 Temperature 97.2 F L 01/25/25 15:52 Pulse Rate 70 01/25/25 15:52 Respiratory Rate 18 01/25/25 15:52 Blood Pressure 123/74 01/25/25 15:52 Pulse Oximetry 100 01/25/25 15:52 Oxygen Delivery Room Air 01/25/25 15:52 Reviewed MDM - Skin/Abscess/Foreign Bdy MDM Narrative Medical decision making narrative: 49-year-old female patient presents today complaining of a pruritic rash for 11 days to bilateral forearms, right calf, and right neck. Upon exam, there is a faintly erythematous maculopapular rash the affected areas. Patient has tried cortisone, Claritin, Pepcid, Benadryl without improvement. She will be started on a tapered regimen of prednisone and has been recommended to stay on a daily antihistamine. Patient agrees with plan. Vital signs stable. Anticipatory guidance given. Differential Diagnosis Differential diagnosis: Likely viral exanthem, dermatophytosis, urticaria, cellulitis, eczema, insect bites, impetigo and contact dermatitis Critical Care Time Critical Care Time Critical Care Time: No Discharge Plan Discharge Clinical Impression: Contact dermatitis Qualifiers: Contact dermatitis type: unspecified Contact dermatitis trigger: unspecified trigger Qualified Code(s): L25.9 - Unspecified contact dermatitis, unspecified cause Patient Disposition: Home Condition: Stable Instructions: Contact Dermatitis (DC) Additional Instructions: Please take the prednisone as prescribed. Stay on a daily antihistamine such as Zyrtec, Claritin, or Stephanie. Follow-up with your PCP next week if symptoms are not improving. Your blood pressure was elevated above 120/80 today at Urgent Care. This puts you above the threshold for follow up. Please schedule a followup visit with your personal physician as soon as possible, for further evaluation and treatment. Even blood pressure exceeding 120/80 may indicate pre-hypertension. Patient Language: Albanian Prescriptions: New prednisone 10 mg tablet See Rx Instructions .ROUTE .COMPLEX Qty: 30 0RF Rx Instructions: 4 tabs daily x3 days,then 3 tabs daily x3 days,then 2 tabs daily x3 days, then 1 tab daily x3 days No Action montelukast [Singulair] 10 mg tablet 10 mg PO DAILY albuterol sulfate 90 mcg/actuation aerosol powdr breath activated 2 inh inhalation Q4-6H PRN (Reason: shortness of breath or wheezing) albuterol sulfate 90 mcg/actuation HFA aerosol inhaler 2 inh inhalation QID PRN (Reason: shortness of breath or wheezing) Qty: 8.5 0RF sumatriptan succinate 100 mg tablet PO Follow-up/Referrals: PHYSICIAN NOT ON STAFF,NONSTAFF [Primary Care Provider] Time of Disposition: 16:38
== END 2025-01-25 16:40 | disposition home or self-care (01) ==
PROVIDERS: Emergency Provider Nurse Practitioner
DX: L25.9 Unspecified contact dermatitis, unspecified cause (principal); J45.909 Unspecified asthma, uncomplicated
CPT/HCPCS: 99213; G0463